=== PATIENT | female | born 1960 | race Caucasian/White ===

== ENCOUNTER 2025-04-10 11:26 | Outpatient (AMB) | payer MEDICARE, MEDICAID, SELFPAY ==
--- NOTE | 2025-04-10 11:43 | MHC.OFFVIS ---
Intake Visit Reasons: ENP- Embolic Stroke Allergies Seasonal Allergies Allergy (Unknown, Verified 04/09/25 08:39) Unknown HPI Comments Details: The patient is a 64-year-old female presenting with concerns regarding memory loss following a cerebrovascular accident which occurred in October 2022. The stroke presented with left-sided weakness and drooling, and she was hospitalized at [facility] where a Patent Foramen Ovale was discovered. Following this, a closure procedure was executed in January 2023. Her medical history includes long-standing hypertension, hypercholesterolemia, managed with medications, and more acutely, anxiety and depression. She admits to heavy alcohol use in the past. Notably, she had significant memory issues predating and post-stroke, fearful of developing Alzheimer's like her mother. Her speech and walking remain affected post-stroke, and she struggles with everyday memory recall, thus affecting her routine activities. She takes clopidogrel and amlodipine regularly and sometimes aspirin but has expressed confusion about her medication post-PFO closure. Her regimen includes a statin for cholesterol management as well. Her recent heart evaluation showed no additional problems. Concerns about safety at home due to forgetfulness remain significant. [facility] Medical History (Updated 04/10/25 @ 11:50 by Gifty Pickens MD) Herpes simplex Depression Acute eczema Anxiety Hypertension HLD (hyperlipidemia) Review of Systems Const Details: - Neurological: Reports memory loss, speech difficulties post-stroke, struggles with walking. - Cardiovascular: Reports a history of stroke; diagnosed PFO now closed. - Mental Health: Reports history of anxiety and depression. - Musculoskeletal: Reports left-sided weakness post-stroke. - ENT: Reports watery nasal discharge. - Medication: Reports taking clopidogrel, amlodipine, statins; inconsistent aspirin use. - Family History: Reports mother with Alzheimer's. Physical Exam Neuro Other: Mental Status: Alert and oriented to person, place, and time. Normal attention. Normal spontaneous speech, fluency, and comprehension. No obvious issues with mood and memory. Affect is appropriate. Cranial Nerves: CN II: Visual grant full to confrontation, visual acuity intact. CN III, IV, : Pupils equal, round, reactive to light and accommodation. Extraocular movements are normal. CN V: Facial sensation is normal. CN VII: Facial movements symmetrical. CN VIII: Hearing intact to bedside conversation is normal. CN IX, X: Palate elevates symmetrically. CN XI: Shoulder shrug and head turn symmetrical. CN XII: Tongue midline without atrophy or fasciculations. Motor: Bulk and tone normal in all extremities. No significant muscle weakness in arms and legs. No drift. Reflexes: Deep tendon reflexes 1+ and symmetric. Plantar response down-going bilaterally. Coordination: [id number] is ok Gait and Station: No obvious gait abnormality. No ataxia or instability. Sensory: Intact to light touch, pinprick, and vibration. Romberg is negative. Extrapyramidal: Full facial expressions and blinking. No rigidity. Movements are appropriate with no tremor or abnormality. Speech: Mild dysphasia Assessment & Plan Assessment & Plan (1) Cerebral infarction: Code(s): I63.9 - Cerebral infarction, unspecified Category: Medical Qualifiers: Cerebral infarction mechanism: embolism Precerebral and cerebral artery: middle cerebral artery Laterality of affected vessel: right Qualified Code(s): I63.411 - Cerebral infarction due to embolism of right middle cerebral artery Plan Impression: a: Reported h/o embolic cerebral infarction resulting in left hemiparesis, which is better, and difficulty speaking, some of which is still there. She apparently had PFO closure. b: Cognitive issues with probably multifactorial etiology Rec: a: Medical records from [facility] b: CD of MRI done at [facility] for review Coding Level of Care Code New Pt Level 5 (46514) Diagnoses Cerebral infarction due to embolism of right middle cerebral artery I63.411 Cerebral infarction mechanism: embolism Precerebral and cerebral artery: middle cerebral artery Laterality of affected vessel: right
--- OUTSIDE RECORDS SUMMARY | 2025-04-10 12:54 | XMS_ITS | Encounter Summary ---
Author Organization [facility] Address [address] [place] [phone] Care Team Providers Care [employer] Name Role Phone Veena Bae MD Primary Care Provider Encounter Details Date Type Department Care Team ([facility] Contact Info) Description 04/09/2025 Telephone Adult Medicine [facility] [address] [place] [phone] Cady Golden [place] Social History Tobacco Use Types Packs/Day Years Used Date Smoking Tobacco: Former Cigarettes 0.5 46 1 979 - 2024 Smokeless Tobacco: Never Alcohol Use Standard Drinks/Week Comments Not Currently 0 (1 standard drink = 0.6 oz pur e alcohol) Comments Unknown Sex and Gender Information Value Date Recorded Sex Assigned at Female 02/11/2025 10:59 AM EDT Legal Sex Female 7:50 AM EST Gender Identity Not on file Sexual Orientation Not on file documented as of this encounter Plan of Treatment Upcoming Encounters Date Type Department Care Team ([facility] Contact Info) Description 07/06/2025 3:30 PM EST Office Visit Adult [facility] [address] [place] [phone] Abel Lincoln PA [address] [place] [address] documented as of this encounter Visit Diagnoses Not on filedocumented in this encounter Additional Health Concerns Assessment Noted Time PHQ-9 Depression Total Score: 7 01/05/20 25 2:55 PM EDT documented as of this encounter Care Teams [employer] Relationship Specialty Start Date End Date Veena Bae MD [address] [place] [address] PCP - General Internal Medicine 11/26/21 documented as of this encounter
--- OUTSIDE RECORDS SUMMARY | 2025-04-10 12:54 | XMS_ITS | Clinical Summary ---
Author Organization [facility] [address] [facility] l[address] Address [address] [place] [address] Phone Care Team Providers Care Bank Manager Name Role Phone Veena Bae MD Primary Care Provider Allergies Active Allergy Reactions Criticality Noted Date Comments Other 11/19/2022 Seasonal Allergies Medications albuterol HFA (PROAIR HFA ; PROVENTIL HFA ; VENTOLIN HFA) 90 mcg/actuation inhaler Inhale 2 Puffs into the lungs every 6 hours as needed for Cough, Wheezing or Shortness of Breath. 3 Active amLODIPine (NORVASC) 5 mg tablet Take 1 tablet (5 mg total) by mouth 1 (one) time each day. 90 tablet 1 5 Active magnesium oxide (MAG-OX) 400 mg (241.3 elemental magnesium) tablet TAKE 1 TABLET BY MOUTH EVERY DAY 90 tablet 1 5 Active hydrOXYzine HCL (ATARAX) 10 mg tabletIndication s:Rash and other nonspecific skin eruption TAKE 1 TABLET BY MOUTH AT BEDTIME NEEDED FOR ITCHING. 90 tablet 1 5 Active GENERIC EXTERNAL MEDICATION 1 (one) time each day. Vitamin D unsure of dose Active acetaminophen (TYLENOL) 325 mg tablet Take 1 tablet (325 mg total) by mouth 2 (two) times a day if needed for mild pain. Active cyclobenzaprine (FLEXERIL) 5 mg tabletIndication s:History of fracture of left ankle Take 1 tablet (5 mg total) by mouth 2 (two) times a day if needed for muscle spasms (can make tired). 30 tablet 5 Active aspirin 81 mg EC tablet Take 1 tablet (81 mg total) by mouth 1 (one) time each day. Active atorvastatin (LIPITOR) 80 mg tabletIndication s:Medicare annual wellness visit, subsequent,Mixed hyperlipidemia,P rimary hypertension,Ecz wale, unspecified type,Moderate episode of recurrent major depressive disorder ([facility] V24, [facility]/HCC V28),Screening for lung cancer Take 1 tablet (80 mg total) by mouth 1 (one) time each day. 5 Active Active Problems Problem Noted Date Diagnosed Date History of embolic stroke 12/29/2024 Assessment & Plan (01/04/2025 4:29 PM EDT): With residual deficits. Continue with aspirin. Keep follow-up with neurology. Eczema 09/05/2024 Assessment & Plan (01/04/2025 4:29 PM EDT): Symptoms well-controlled. No longer seeing dermatology. Orders: atorvastatin (LIPITOR) 80 mg tablet; Take 1 tablet (80 mg total) by mouth 1 (one) time each day. Ambulatory referral to Thoracic Surgery; Future History of fracture of left ankle 09/05/2024 Depression 02/12/2022 Assessment & Plan (01/04/2025 4:29 PM EDT): Advised to continue taking Celexa 10 mg daily. Orders: atorvastatin (LIPITOR) 80 mg tablet; Take 1 tablet (80 mg total) by mouth 1 (one) time each day. Ambulatory referral to Thoracic Surgery; Future Heavy alcohol use 08/11/2018 Overview (04/21/2024): Seen at [facility] 07/26/18 complaining of crisis with alcohol overuse, alcohol [id number] seen by crisis and discharged Right shoulder pain 11/10/2017 Overview (04/21/2024): MRI 01/25/2012: There are fibrocystic degenerative changes along the posterior humeral head. The rotator cuff appears grossly intact. There is AC join arthrosis, with cystic change in the distal clavicle and adjacent acromion. Hyperglycemia 11/19/2015 Anxiety 2015 Herpes simplex 2015 HTN (hypertension) 2015 Assessment & Plan (01/04/2025 4:29 PM EDT): Blood pressure well-controlled on current regimen. Orders: atorvastatin (LIPITOR) 80 mg tablet; Take 1 tablet (80 mg total) by mouth 1 (one) time each day. Ambulatory referral to Thoracic Surgery; Future Hypercholesterolemia 2015 Overview (04/21/2024): Exercise stress 10/23/11 Encounters Date Type Department Care Team Description 04/09/2025 Telephone Adult Medicine - [place] [address] [place] [address] Cady Golden MA 04/02/2025 Telephone Adult Medicine - [place] [address] [place] [address] Veena Bae MD 03/30/2025 Telephone Adult Medicine - [place] [address] [place] [address] Veena Bae MD 03/30/2025 Telephone Adult Medicine - [place] [address] [place] [address] Veena Bae MD 03/30/2025 Telephone Adult Medicine - [place] [address] [place] [address] Veena Bae MD 03/27/2025 Telephone Adult Medicine - [place] [address] [place] [address] Veena Bae MD 03/27/2025 Telephone Adult Medicine - [place] [address] [place] [address] Veena Bae MD 03/15/2025 Telephone Adult Medicine - [place] [address] [place] [address] Veena Bae MD 03/09/2025 Telephone Adult [facility] [address] [place] [address] Veena Bae MD 03/05/2025 Telephone Adult [facility] [address] [place] [address] Veena Bae MD 03/01/2025 10:30 AM EDT Office Visit Adult [address] [address] Veena Bae MD Hospital discharge follow-up (Primary Dx); S/P patent foramen ovale closure; History of embolic stroke; Primary hypertension; Mixed hyperlipidemia; Speech disturbance, unspecified type 02/23/2025 Telephone Adult [address] [address] Veena Bae MD 02/13/2025 10:13 AM EDT - 02/13/2025 11:59 PM EDT Hospital Encounter [facility] CT Scan [address] [place] [address] Encounter for screening for lung cancer; History of tobacco use Discharge Disposition: Home or Self Care 02/13/2025 10:00 AM EDT Office Visit Lung Screening Program - [place] [address] [facility] [address] [place] [phone] Marii Bhatia, KATIE Encounter for screening for malignant neoplasm of lung in former smoker who quit in past 15 years with 30 pack year history or greater (Primary Dx); Medicare annual wellness visit, subsequent; Mixed hyperlipidemia; Primary hypertension; Eczema, unspecified type; Moderate episode of recurrent major depressive disorder (CMS/HCC V24, CMS/HCC V28); Screening for lung cancer 02/08/2025 Telephone Adult [facility] [address] [place] [address] Veena Bae MD 02/05/2025 Telephone Adult [facility] [address] [place] [address] Ricardo NadiaNBA 01/18/2025 Telephone Adult [facility] [address] [place] [address] Veena Bae MD 01/11/2025 Telephone Adult [facility] [address] [place] [phone] Veena Bae MD 01/09/2025 Telephone Adult [facility] [address] [place] [phone] Veena Bae MD from Last 3 Months Immunizations Immunization Administration Dates Next Due Hepatitis B (Fijcxjs-D-Btjvw , Recombivax HB-Adult) 19yo and older 04/26/2012,11/24/2011,10/14/2011 Influenza Quadravalent, MDCK , 0.5ml, preservative free (Flucelvax) 6mo and older 06/20/2019 Tdap Tetanus diptheria acell ular pertussis (Boostrix; Adacel) 7yo and older 11/19/2015 Surgical History Surgery Date Site/Laterality Comments COLONOSCOPY 12/16/11 PROCEDURE: HISTORICAL COLONOSCOPY; COMMENT: nl, Aleisha per pt OTHER SURGICAL HISTORY 11/14/09 PROCEDURE: OUTSIDE PAP SMEAR TUBAL LIGATION 1989 PROCEDURE: HISTORICAL TUBAL LIGATION ECTOPIC SURGERY 1989 Left PROCEDURE: HISTORICAL ECTOPIC SURGERY; COMMENT: tubal BREAST LUMPECTOMY PROCEDURE: ---- BREAST LUMP BIOPSY ---- BREAST BIOPSY Bilateral PROCEDURE: BX BREAST; PERC NEEDLE CORE W/IMAG GUID; COMMENT: 6 or 7 yrs ago FOOT SURGERY PROCEDURE: HISTORICAL FOOT SURGERY; COMMENT: bunion exostectomy PATENT FORAMEN OVALE CLOSURE 01/31/2025 Medical History Medical History Date Comments HTN (hypertension) 2015 DX:HTN (hyper tension) Herpes simplex 2015 DX:Herpes simple x Hypercholesterolemia 2015 DX:Hypercho lesterolemia Anxiety 2015 DX:Anxiety Hx of stroke without residual deficits 5 Family History Medical History Relation Name Comments Diabetes Brother 1 Hypertension Brother 2 Heart attack Father dyslipidemia Arthritis Mother Colon cancer Other cousin Leukemia Paternal Grandfather Breast cancer Neg Hx Relation Name Status Comments Brother 1 Brother 2 Father Mother (Age 85) Other Paternal Grandfather Social History Tobacco Use Types Packs/Day Years Used Date Smoking Tobacco: Former Cigarettes 0.5 46 1 2024 Smokeless Tobacco: Never Alcohol Use Standard Drinks/Week Comments Not Currently 0 (1 standard drink = 0.6 oz pur e alcohol) Comments Unknown Sex and Gender Information Value Date Recorded Sex Assigned at Female 02/11/2025 10:59 AM EDT Legal Sex Female 7:50 AM EST Gender Identity Not on file Sexual Orientation Not on file Obstetrics History Last Filed Vital Signs Vital Sign Reading Time Taken Comments Blood Pressure 114/72 03/01/2025 10:25 AM EDT Pulse 85 03/01/2025 10:25 AM EDT Temperature 36 C (96.8 F) 03/01/2025 10:25 AM EDT Respiratory Rate 16 03/01/2025 10:25 AM EDT Oxygen Saturation 95% 11/24/2024 11:28 AM EDT Inhaled Oxygen Concentration - - Weight 73.9 kg (163 lb) 03/01/2025 10:25 AM EDT Height 163 cm (5' 4.17 ) 03/01/2025 10:25 AM EDT Body Mass Index 27.83 03/01/2025 10:25 AM EDT Plan of Treatment Upcoming Encounters Date Type Department Care Team (Late st Contact Info) Description 07/06/2025 3:30 PM EST Office Visit Adult Medicine - [address] [address] Abel Lincoln, PA [address] [place] [phone] Health Maintenance Due Date Last Done Comments Colorectal Cancer Screening: Colonoscopy 1960 Hepatitis A Vaccines (1 of 2 - Risk 2-dose series) 09/22/1978 Pneumococcal Vaccine: 50+ Years (1 of 1 - PCV) 09/22/2009 Zoster Vaccines (1 of 2) 09/22/2009 Cervical Cancer Screening: P ap Smear 11/07/2012 11/07/2009 Osteoporosis Screening (Bone Density Screening) 06/20/2022 Social Influencers of Health Screening 06/20/2022 COVID-19 Vaccine (2023-2 5 season) 2025 Influenza Vaccine (#1) 2025 06/20/2019 Hypertension/CHF/CAD Annual BMP Blood Test 09/05/2025 09/05/2024, 09/01/2023 Breast Cancer Screening 09/08/2025 09/08/19 24, 01/04/2019 DTaP,Tdap,and Td Vaccines (2 - Td or Tdap) 11/18/2025 11/19/2015 Falls Risk Assessment 01/04/2026 01/04/2025 Medicare Annual Wellness Visit 01/04/2026 01/04/2025 Lung Cancer Screening (Low Dose CT) 02/13/2026 02/13/2025 Cholesterol Screening (Lipid Panel) 09/05/2029 09/05/2024, 11/30/2023, 11/30/2023 RSV Immunization Adult Patients (1 - 1-dose 75+ series) 09/22/2034 Hepatitis B Vaccines Completed 04/26/2012, 11/24/2011, 10/14/2011 Hepatitis C Screening Completed 09/19/2019 Depression Screening Completed 01/04/2025, 11/30/2023 HIB Vaccines Aged Out No longer eligi ble based on patient's age to complete this topic HPV Vaccines Aged Out No longer eligi ble based on patient's age to complete this topic IPV Vaccines Aged Out No longer eligi ble based on patient's age to complete this topic MMR Vaccines Aged Out No longer eligi ble based on patient's age to complete this topic Meningococcal ACWY Vaccine Aged Out N o longer eligible based on patient's age to complete this topic Meningococcal B Vaccine Aged Out No l onger eligible based on patient's age to complete this topic RSV Immunization Patients Under 20 months Aged Out No longer eligible b ased on patient's age to complete this topic Varicella Vaccines Aged Out No longer eligible based on patient's age to complete this topic Procedures Procedure Name Priority Date/Time Associated Diagnosis Comments EXTERNAL ECHO Routine 03/01/2025 3:[address] LUNG SCREENING Routine 02/13/2025 10: 24 AM EDT Encounter for screening for lung cancer History of tobacco use COMPREHENSIVE METABOLIC PANEL Routine 09/05/2024 3:41 PM EST Primary hypertension Hypercholesterolem ia LIPID PANEL WITH REFLEX TO DIRECT LDL Routine 09/05/2024 3:41 PM EST Primary hypertension Hypercholesterolem ia DEPRESSION SCREENING Routine 11/30/2023 SCREENING MAMMOGRAPHY BI 2-VIEW BREAST INC CAD Routine 09/08/2023 1:49 PM EST Encounter for screening mammogram for malignant neoplasm of breast HEPATITIS C SCREENING Routine 09/19/2019 PAP SMEAR Routine 11/07/2009 from Last 3 Months or Most Recently Relevant to Health Maintenance Results * External Echo (03/01/2025 3:34 PM EDT) Anatomical Region Laterality Modality Ultrasound us Historical Provider MD DSOUZA ECHO PROCEDURES Final Result * CT Lung Screening (02/13/2025 10:24 AM EDT) Anatomical Region Laterality Modality Chest Computed Tomogra phy 02/18/2025 5:58 AM EDT Impressions 02/18/2025 6:13 AM EDT No suspicious pulmonary nodules Lung RADS 2: Benign Appearance or Behavior - Continue annual screening with LDCT in 12 months. -------- FINAL REPORT -------- Dictated By: Azra Rankin Dictated Date: 02/18/2025 05:58 ET Assigned Physician: Azra Rankin Reviewed and Electronically Signed By: Azra Rankin Signed Date: 02/18/2025 06:13 ET Workstation ID: [id number] Transcribed By: Self Edit Transcribed Date: 02/18/2025 05:58 ET Narrative 02/18/2025 6:13 AM EDT Indication: Greater than 20 total pack-year smoking history, asymptomatic former smoker Technique: Low-dose CT scan of the chest obtained as a lung cancer screening study. Multiplanar reformatted images were obtained. Dose reduction technique: ASIR (Adaptive statistical iterative reconstruction) and/or AEC (automated exposure control) DLP: 90.54 mGy-cm COMPARISON: No prior imaging available for comparison. FINDINGS: Lack of intravenous contrast limits evaluation of the [place], vascular structures and visualized abdominal viscera. Lungs/airways: Trachea and central airways are patent. Mild emphysematous changes. 5 mm juxtapleural nodule in the right upper lobe (series 3, image 56). Other scattered sub-5 mm pulmonary nodules. Base of the neck, mediastinum, heart, chest wall, vessels: The assessment of hilar lymphadenopathy is difficult without the use of IV contrast. Thyroid gland is unremarkable. No enlarged mediastinal lymph nodes. Thoracic aortic and coronary artery calcifications. Ascending thoracic aorta measures approximately 3.8 cm at the level of the pulmonary trunk. Postsurgical appearance along the foramen ovale and mitral annulus Upper abdomen: This study was performed without contrast and with lower than standard dose. These factors reduce the sensitivity for detection of small lesions in the upper abdomen. No significant abnormality is seen Bones/soft tissues: Right convex thoracic scoliosis. Procedure Note Azra Rankin MD - 02/18/2025 Indication: Greater than 20 total pack-year smoking history, asymptomaticformer smoker Technique: Low-dose CT scan of the chest obtained as a lung cancerscreening study. Multiplanar reformatted images were obtained. Dosereduction technique: ASIR (Adaptive statistical iterative reconstruction)and/or AEC (automated exposure control) DLP: 90.54 mGy-cm COMPARISON: No prior imaging available for comparison. FINDINGS: Lack of intravenous contrast limits evaluation of the [place],vascular structures and visualized abdominal viscera. Lungs/airways: Trachea and central airways are patent. Mild emphysematouschanges. 5 mm juxtapleural nodule in the right upper lobe (series 3, image 56).Other scattered sub-5 mm pulmonary nodules. Base of the neck, mediastinum, heart, chest wall, vessels: The assessmentof hilar lymphadenopathy is difficult without the use of IV contrast.Thyroid gland is unremarkable. No enlarged mediastinal lymph nodes.Thoracic aortic and coronary artery calcifications. Ascending thoracicaorta measures approximately 3.8 cm at the level of the pulmonary trunk.Postsurgical appearance along the foramen ovale and mitral annulus Upper abdomen: This study was performed without contrast and with lowerthan standard dose. These factors reduce the sensitivity for detection ofsmall lesions in the upper abdomen. No significant abnormality is seen Bones/soft tissues: Right convex thoracic scoliosis. IMPRESSION: No suspicious pulmonary nodules Lung RADS 2: Benign Appearance or Behavior - Continue annual screeningwith LDCT in 12 months. -------- FINAL REPORT -------- Dictated By: Azra Rankin Dictated Date: 02/18/2025 05:58 ET Assigned Physician: Azra Rankin Reviewed and Electronically Signed By: Azra Rankin Signed Date: 02/18/2025 06:13 ET Workstation ID: [id number] Transcribed By: Self Edit Transcribed Date: 02/18/2025 05:58 ET us Ollie Hoffman MD IMG CT PROCEDURES Final Result * Lipid panel with reflex to direct LDL (09/05/2024 3:41 PM EST) Cholesterol 198 0 - 200 mg/dL LAB CHEMISTRY METHOD 09/05/2024 6:09 PM [facility] Triglycerides 91 0 - 150 mg/dL LAB CHEMISTRY METHOD 09/05/2024 6:09 PM [facility] HDL 89 >=40 mg/dL LAB CHEMISTRY METHOD 09/05/2024 6:09 PM [facility] LDL Calculated 91 0 - 100 mg/dL LAB CHEMISTRY METHOD 09/05/2024 6:09 PM [facility] VLDL Cholesterol Avery 18.2 mg/dL LAB CHEMISTRY METHOD 09/05/2024 6:09 PM [facility] Non HDL Chol. (LDL+VLDL) 109 <145 mg/dL LAB CHEMISTRY METHOD 09/05/2024 6:09 PM [facility] Chol/HDL Ratio 2.2 0.0 - 4.4 LAB CHEMISTRY METHOD 09/05/2024 6:09 PM [facility] Blood Venous blood specimen / Unknown Venipuncture / Unknown 09/05/2024 3:41 PM EST 09/05/2024 3:41 PM EST us Abel MUELLER LAB BLOOD ORDERABLES Final Re sult [facility] [address] [place] [address], * (ABNORMAL) Comprehensive metabolic panel (09/05/2024 3:41 PM EST) Sodium 139 133 - 145 mmol/L LAB CHEMISTRY METHOD 09/05/2024 6:07 PM [facility] Potassium 4.1 3.5 - 5.5 mmol/L LAB CHEMISTRY METHOD 09/05/2024 6:07 PM [facility] Chloride 108 96 - 110 mmol/L LAB CHEMISTRY METHOD 09/05/2024 6:07 PM [facility] CO2 26 21 - 32 mmol/L LAB CHEMISTRY METHOD 09/05/2024 6:07 PM [facility] Anion Gap 5 3 - 11 LAB CHEMISTRY METHOD 09/05/2024 6:07 PM [facility] Glucose 102(H) 70 - 100 mg/dL LAB CHEMISTRY METHOD 09/05/2024 6:07 PM [facility] BUN 25 5 - 25 mg/dL LAB CHEMISTRY METHOD 09/05/2024 6:07 PM [facility] Creatinine 0.77 0.50 - 1.10 mg/dL LAB CHEMISTRY METHOD 09/05/2024 6:07 PM [facility] eGFR 86 >=60 mL/min/1. 73m2 LAB CHEMISTRY METHOD 09/05/2024 6:07 PM [facility] Comment:Calculation based on the Chronic Kidney Disease Epidemiology Collaboration (CKD-EPI) equation refit without adjustment for race. BUN/Creatinine Ratio 32.5 LAB CHEMISTRY METHOD 09/05/2024 6:07 PM [facility] Calcium 10.1 8.5 - 10.5 mg/dL LAB CHEMISTRY METHOD 09/05/2024 6:07 PM [facility] AST (SGOT) 19 10 - 42 unit/L LAB CHEMISTRY METHOD 09/05/2024 6:07 PM [facility] ALT (SGPT) 31 10 - 60 unit/L LAB CHEMISTRY METHOD 09/05/2024 6:07 PM [facility] Alkaline Phosphatase 102 42 - 121 unit/L LAB CHEMISTRY METHOD 09/05/2024 6:07 PM [facility] Total Protein 7.6 6.0 - 8.0 g/dL LAB CHEMISTRY METHOD 09/05/2024 6:07 PM [facility] Albumin 4.2 3.2 - 5.0 g/dL LAB CHEMISTRY METHOD 09/05/2024 6:07 PM [facility] Total Bilirubin 0.3 0.0 - 1.4 mg/dL LAB CHEMISTRY METHOD 09/05/2024 6:07 PM [facility] Blood Venous blood specimen / Unknown Venipuncture / Unknown 09/05/2024 3:41 PM EST 09/05/2024 3:41 PM EST Abel MUELLER LAB BLOOD ORDERABLES Final Re sult [facility] [address] [place] [address], * Depression Screening (11/30/2023) Depression Screening Abstracted Historical Provider HEALTH MAINTENANCE Final Result * SCREENING MAMMOGRAPHY BI 2-VIEW BREAST INC CAD (09/08/2023 1:49 PM EST) Anatomical Region Laterality Modality Radiographic Candie ging 09/03/2023 9:27 AM EST Narrative 09/09/2023 9:04 AM EST This is a summary report. The complete report is available in the patient's medical record. If you cannot access the medical record, please contact the sending organization for a detailed fax or copy. Exam: Screening mammogram Findings: Digital bilateral full-field screening mammography is performed with tomosynthesis and interpreted with the aid of computer-aided detection. Comparison is made with 01/04/2019. Breast parenchyma is composed of scattered fibroglandular densities. Minimal enlargement of the sonographically proven cyst in the lower inner left breast. No new suspicious mass, architectural distortion, or suspicious calcifications. Impression: No mammographic evidence of malignancy. BI-RADS 2-benign Procedure Note Yana Holcomb MD - 02/28/2024 This is a summary report. The complete report is available in thepatient's medical record. If you cannot access the medical record, pleasecontact the sending organization for a detailed fax or copy. Exam: Screening mammogram Findings: Digital bilateral full-field screening mammography is performedwith tomosynthesis and interpreted with the aid of computer-aideddetection. Comparison is made with 01/04/2019. Breast parenchyma is composed of scattered fibroglandular densities.Minimal enlargement of the sonographically proven cyst in the lower innerleft breast. No new suspicious mass, architectural distortion, orsuspicious calcifications. Impression: No mammographic evidence of malignancy. BI-RADS 2-benign Abel MUELLER IMG XR PROCEDURES Final Resul t * Hepatitis C Screening (09/19/2019) Hepatitis C Screening Abstracted Historical Provider HEALTH MAINTENANCE Final Result * Pap Smear (11/07/2009) Pap smear No Interpretation , Abstracted Historical Provider HEALTH MAINTENANCE Final Result from Last 3 Months or Most Recently Relevant to Health Maintenance Insurance [place]ICA[place] [employer] MEDICARE ADVANTAGE Care Teams Bank Manager Relationship Specialty Start Date End Date Veena Bae MD [address] [place] [phone] PCP - General Internal Medicine 11/26/21
--- OUTSIDE RECORDS SUMMARY | 2025-04-10 12:54 | XMS_ITS | Encounter Summary ---
Author Organization [facility] Address [address] [place] [address] Care Team Providers Care Food Safety Technician Name Role Phone Veena Bae MD Primary Care Provider Reason for Visit * Reason Onset Date Comments Letter for School/Work 04/02/2025 Encounter Details Date Type Department Care Team ([facility] Contact Info) Description 04/02/2025 Telephone Adult Medicine - [place] [address] [place] [phone] Veena Bae MD [address] [place] [address] Social History Tobacco Use Types Packs/Day Years Used Date Smoking Tobacco: Former Cigarettes 0.5 46 1 97 - 2024 Smokeless Tobacco: Never Alcohol Use Standard Drinks/Week Comments Not Currently 0 (1 standard drink = 0.6 oz pur e alcohol) Comments Unknown Sex and Gender Information Value Date Recorded Sex Assigned at Female 02/11/2025 10:59 AM EDT Legal Sex Female 7:50 AM EST Gender Identity Not on file Sexual Orientation Not on file documented as of this encounter Progress Notes * Cady Golden MA - 04/09/2025 9:40 AM EDT Mychart sent to [facility] account number needed. * David Sultana - 04/02/2025 1:10 PM EDT Pt calling in because she needs a letter for work stating that she is recovering from a serious illness. Pt had a stroke recently. Pt needs this for Eversouce so she can get a lowered gas bill and then to have it mailed to the address on file. Pls marisa leon. documented in this encounter Plan of Treatment Upcoming Encounters Date Type Department Care Team (Late st Contact Info) Description 07/06/2025 3:30 PM EST Office Visit Adult Medicine - [place] [address] [place] [address] Abel Lincoln PA [address] [place] [address] documented as of this encounter Visit Diagnoses Not on filedocumented in this encounter Additional Health Concerns Assessment Noted Time PHQ-9 Depression Total Score: 7 01/05/20 25 2:55 PM EDT documented as of this encounter Care Teams Food Safety Technician Relationship Specialty Start Date End Date Veena Bae MD [address] [phone] PCP - General Internal Medicine 11/26/21 documented as of this encounter
--- OUTSIDE RECORDS SUMMARY | 2025-04-10 12:54 | XMS_ITS ---
Author Name [facility] Organization Unknown Care Team Organization Name Specialty Phone Email Start Date End Da te [facility] Parish Ivey DO Primary Care 09/16/202202/09 [facility] Rupali Maddox Primary Care 05/19/2022 02/28/2024
--- OUTSIDE RECORDS SUMMARY | 2025-04-10 12:54 | XMS_ITS | Clinical Summary ---
Author Organization [facility] Address [address] [place] [address] Care Team Providers Care Distribution Accounting Clerk Name Role Phone Veena Bae MD Primary Care Provider Medications Medication Sig Dispensed Refills Start Date End Date Status amLODIPine (NORVASC) tablet 5 mg Take 1 tablet by mouth daily. 0 02/03/2022 Active escitalopram (LEXAPRO) tablet 10 mg Take 1.5 tablets by mouth daily. 0 02/12/2022 Active fluticasone (Flovent HFA) 110 MCG/ACT inhaler Take 1 puff by mouth 2 (two) times a day. 0 01/27/2022 Active folic acid (FOLVITE) tablet 1 mg Take 1 tablet by mouth daily. 0 04/23/2020 Active Multiple Vitamins-Minerals (Multivitamin Adults 50+) TABS Take by mouth. 0 Active Vitamins A & D 38704-180 units TABS Take by mouth. 0 Active Active Problems No known active problems Social History Tobacco Use Types Packs/Day Years Used Date Smoking Tobacco: Never Smokeless Tobacco: Never Alcohol Use Standard Drinks/Week Comments Not Currently 0 (1 standard drink = 0.6 oz pur e alcohol) Sex and Gender Information Value Date Recorded Sex Assigned at Not on file Gender Identity Not on file Sexual Orientation Not on file Job Start Date Occupation Industry Not on file Not on file Not on file Last Filed Vital Signs Vital Sign Reading Time Taken Comments Blood Pressure 145/82 03/20/2022 10:38 AM EDT Pulse 93 03/20/2022 10:38 AM EDT Temperature 36.6 C (97.8 F) 03/20/2022 10:38 AM EDT Respiratory Rate - - Oxygen Saturation 98% 03/20/2022 10:38 AM EDT Inhaled Oxygen Concentration - - Weight 66.7 kg (147 lb) 03/20/2022 10:38 AM EDT Height - - Body Mass Index - - Plan of Treatment Health Maintenance Due Date Last Done Comments Hepatitis C Screening 1960 COVID-19 Vaccine (#1) 03/25/1960 Depression Screening 1971 Preventative Health Evaluation 09/22/1977 Cervical Cancer Screening (P ap Smear) 09/22/1980 Colon Cancer Screening (Colonoscopy) 09/22/2004 Breast Cancer Screening (Mammogram) 09/22/2009 Shingrix-Zoster Vaccine (1 of 2) 09/22/2009 Fall Risk Assessment 09/22/2024 Osteoporosis Screening (DEXA Scan) 09/22/2024 Pneumococcal Vaccine (1 of 1 - PCV) 09/22/2024 Influenza Vaccine (#1) 2025 06/20/2019 DTap / Tdap / Td (2 - Td or Tdap) 11/18/2025 016 RSV Adult > 60+ Yrs or Pregn ant (1 - 1-dose 75+ series) 09/22/2034 Hepatitis B Vaccines Aged Out No long er eligible based on patient's age to complete this topic Pneumococcal Vaccine Aged Out No long er eligible based on patient's age to complete this topic RSV Ped < 20 months Aged Out No longe r eligible based on patient's age to complete this topic Care Teams Distribution Accounting Clerk Relationship Specialty Start Date End Date Veena Bae MD [address] [place] [address] PCP - General Family Medicine 01/14/22
== END 2025-04-10 11:57 | disposition home or self-care (01) ==
PROVIDERS: Visit Provider Psychiatry & Neurology Neurology
DX: I63.411 Cerebral infarction due to embolism of right middle cerebral artery (principal)
CPT/HCPCS: 99203

== ENCOUNTER → 2025-04-10 11:26 | Outpatient (BNVA) | payer MEDICARE, SELFPAY | PROVIDERS: Visit Provider Psychiatry & Neurology Neurology | DX: I63.411 Cerebral infarction due to embolism of right middle cerebral artery (principal) | CPT/HCPCS: 99202 ==

== ENCOUNTER 2025-05-07 10:34 | Outpatient (AMB) | payer MEDICARE, MEDICAID, SELFPAY ==
--- NOTE | 2025-05-07 10:36 | A.OFFVIS_ITS ---
Intake Visit Reasons: PT Bringing Records for review Allergies Seasonal Allergies Allergy (Unknown, Verified 04/09/25 08:39) Unknown Medication List - Last Reconciled 05/07/25 by Gifty Pickens MD amlodipine 5 mg PO DAILY aspirin 81 mg PO DAILY atorvastatin 80 mg PO BEDTIME citalopram 10 mg PO DAILY clopidogrel 75 mg PO DAILY fluticasone propionate 110 mcg/actuation 1 puff inhalation BID hydroxyzine HCl 10 mg PO BEDTIME PRN HPI Comments Details: 64 years old right-handed woman with a small right anterior frontal embolic ischemic infarct resulting in left-sided weakness in late October of 2024 when she was admitted at [facility]. She was noted to have a right M3 embolus and moderate (55%) stenosis of right ICA. Her cardiac testing revealed a PFO and she had a closure procedure done. After that, she was put on aspirin and Plavix and Plavix was recently stopped. She was following a cement mason helper. There was no further stroke-like symptoms. She was having some difficulty sleeping. [facility] Medical History (Updated 05/07/25 @ 10:48 by Gifty Pickens MD) Herpes simplex Depression Acute eczema Anxiety Hypertension HLD (hyperlipidemia) Review of Systems Narrative Constitutional:?No fever, chills, fatigue, weight loss, or night sweats. HEENT:?No headache, vision changes, hearing loss, nasal congestion, sore throat. Neurological:?No dizziness, syncope, seizures, numbness, tingling, weakness, tremors, memory loss. Psychiatric:?Anxiety and insomnia Endocrine:?No heat/cold intolerance, polydipsia, polyuria, or hair/skin changes. Hematologic/Lymphatic:?No easy bruising, bleeding, or lymphadenopathy. Integumentary (Skin):?No rash, lesions, itching, or color changes. ? Physical Exam Neuro Other: Mental Status: Alert and oriented to person, place, and time. Normal attention. Normal spontaneous speech, fluency, and comprehension. No obvious issues with mood and memory. Affect is appropriate. Cranial Nerves: CN II: Visual grant full to confrontation, visual acuity intact. CN III, IV, : Pupils equal, round, reactive to light and accommodation. Extraocular movements are normal. CN V: Facial sensation is normal. CN VII: Facial movements symmetrical. CN VIII: Hearing intact to bedside conversation is normal. CN IX, X: Palate elevates symmetrically. CN XI: Shoulder shrug and head turn symmetrical. CN XII: Tongue midline without atrophy or fasciculations. Extrapyramidal: Full facial expressions and blinking. No rigidity. Movements are appropriate with no tremor or abnormality. Speech: Normal; no dysarthria or tremor. Assessment & Plan Assessment & Plan (1) Cerebral infarction: Comment: CTA brain at [facility] in Oct 2024: 55% R ICA stenosis, R M3 embolus, R ant frontal embolic infarct (reported) Code(s): I63.9 - Cerebral infarction, unspecified Category: Medical Qualifiers: Cerebral infarction mechanism: embolism Precerebral and cerebral artery: middle cerebral artery Laterality of affected vessel: right Qualified Code(s): I63.411 - Cerebral infarction due to embolism of right middle cerebral artery (2) Embolic cerebral infarction: Code(s): I63.40 - Cerebral infarction due to embolism of unspecified cerebral artery Category: Medical Qualifiers: Precerebral and cerebral artery: middle cerebral artery Laterality of affected vessel: right Qualified Code(s): I63.411 - Cerebral infarction due to embolism of right middle cerebral artery (3) Insomnia: Code(s): G47.00 - Insomnia, unspecified Category: Medical Qualifiers: Insomnia type: due to other mental disorder Qualified Code(s): F51.05 - Insomnia due to other mental disorder; F99 - Mental disorder, not otherwise specified (4) Anxiety: Code(s): F41.9 - Anxiety disorder, unspecified Category: Medical Plan Impression recommendations: 64 years old right-handed woman with a small embolic right frontal ischemic infarct associated with moderate right internal carotid artery stenosis and a PFO, which was treated with a closure procedure, now stable. She also suffered from chronic anxiety and associated insomnia. She was reassured and educated. Her anxiety and insomnia has worsened since she stopped taking citalopram. I restarted similar medicine, sertraline 25 mg in the morning. She was reassured and educated. Medications: New sertraline 25 mg PO DAILY 90 tabs 0RF Coding Level of Care Code Est Pt Level 4 (72339) Diagnoses Cerebral infarction due to embolism of right middle cerebral artery I63.411 Cerebral infarction mechanism: embolism Precerebral and cerebral artery: middle cerebral artery Laterality of affected vessel: right Cerebral infarction due to embolism of right middle cerebral artery I63.411 Precerebral and cerebral artery: middle cerebral artery Laterality of affected vessel: right Insomnia due to other mental disorder F51.05; F99 Insomnia type: due to other mental disorder Anxiety F41.9
--- OUTSIDE RECORDS SUMMARY | 2025-05-07 12:58 | XMS_ITS | Clinical Summary ---
Author Organization [facility] Address [address] [place] [address] Care Team Providers Care Export Coordinator Name Role Phone Veena Bae MD Primary [...] mouth. 0 Active Vitamins A & D 71271-418 units TABS Take by mouth. 0 Active [...] age to complete this topic Care Teams Export Coordinator Relationship Specialty Start Date End Date Veena Bae MD [address] [place] [address] PCP - General Family Medicine 01/14/22
--- OUTSIDE RECORDS SUMMARY | 2025-05-07 12:59 | XMS_ITS | Encounter Summary ---
Author Organization [facility] Address [address] [place] [address] Care Team Providers Care Gravel Hauler Name Role Phone Veena Bae MD Primary Care Provider Reason for Visit * Reason Onset Date Comments Mouth Lesions 04/27/2025 Encounter Details Date Type Department Care Team ([facility] st Contact Info) Description 04/27/2025 Telephone Adult Medicine [facility] [address] [place] [phone] Veena Bae MD [address] [place] [address] Social History Tobacco Use Types Packs/Day Years [...] on file documented as of this encounter Ordered Prescriptions Prescription Sig Dispense Quantity Refills Last Filled Start Date End Date acyclovir (ZOVIRAX) 5 % ointmentIndicatio ns:Cold sore Apply topically 5 (five) times a day for 4 days. Space applications every 3 hours. 5 g 04/27/2025 documented in this encounter Progress Notes * Keny Smith RN - 04/27/2025 4:53 PM EDT Left message for pt to please return our call * Veena Bae MD - 04/27/2025 4:51 PM EDT Script for topical acyclovir sent. * Keny Smith RN - 04/27/2025 10:40 AM EDT Pt has been using OTC medication for a cold sore , but it is not helping pt is asking for a script to be sent * Bettye Estes - 04/27/2025 10:10 AM EDT Patient has cold sore and using Abreva. Since yesterday and today. Not drying it out like before. Wants to know if we can call something in for this. The cold sore is still tingling and doesn't seem to be getting better, with the abreva it seems to be getting worse. Please call patient back and let her know if we can call something in. [phone] documented in this encounter Plan of Treatment Upcoming Encounters Date Type Department Care Team (Late st Contact Info) Description 07/06/2025 3:30 PM EST Office Visit Adult Medicine - [place] [address] [place] [phone] Abel Lincoln PA [address] [place] [address] documented as of this encounter Visit Diagnoses Diagnosis Cold sore- Primary Herpes simplex without mention of complication documented in this encounter Additional Health Concerns Assessment Noted Time PHQ-9 Depression Total Score: 7 01/05/20 25 2:55 PM EDT documented as of this encounter Care Teams Gravel Hauler Relationship Specialty Start Date End Date Veena Bae MD [address] [place] [address] PCP - General Internal Medicine 11/26/21 documented as of this encounter
--- OUTSIDE RECORDS SUMMARY | 2025-05-07 12:59 | XMS_ITS | Encounter Summary ---
Author Organization [facility] Address [address] [place] [address] Care Team Providers Care Sock Turner Name Role Phone Veena Bae MD Primary Care Provider [phone] Encounter Details Date Type Department Care Team Description 01/15/2023 Hospital Medical Records [address] [place] [address] Jas Villarreal Social History Tobacco Use Types Packs/Day Years Used Date Smoking Tobacco: Former Cigarettes 1 10 Q uit: 07/12/2020 Smokeless Tobacco: Never Comments:Vape rarely Alcohol Use Standard Drinks/Week Comments Not Currently 0 (1 standard drink = 0.6 oz pur e alcohol) Sober 8 months (11/2023) Sex Assigned at Date Recorded Not on file Job Start Date Occupation Industry Not on file Not on file Not on file documented as of this encounter Plan of Treatment Not on file documented as of this encounter Visit Diagnoses Not on filedocumented in this encounter Care Teams Sock Turner Relationship Specialty Start Date End Date Veena Bae MD [address] [facility] [place] [address] PCP - General Internal Medicine 11/26/21 documented as of this encounter
--- OUTSIDE RECORDS SUMMARY | 2025-05-07 12:59 | XMS_ITS | Encounter Summary ---
Author Organization [facility] Address [address] [place] [address] Care Team Providers Care Shredding Machine Operator Name Role Phone Jacquie Garcia MD Primary Care Provider Veena Coronado MD Primary Care Provider Encounter Details Date Type Department Care Team Description 11/27/2015 Release of Information Medical Records [address] [place] [id number] Abstract, Provider Social History Tobacco Use Types Packs/Day Years Used Date Smoking Tobacco: Some Days Cigarettes 1 10 Smokeless Tobacco: Never Comments:perhaps 2 cigarette s aday if that Alcohol Use Standard Drinks/Week Comments Yes 0 (1 standard drink = 0.6 oz pur e alcohol) rare wine Sex Assigned at Date Recorded Not on file Job Start Date Occupation Industry Not on file Not on file Not on file documented as of this encounter Plan of Treatment Not on file documented as of this encounter Visit Diagnoses Not on filedocumented in this encounter Care Teams Shredding Machine Operator Relationship Specialty Start Date End Date Jacquie Garcia MD PCP - General Internal Medicine 09/04/15 11/25/21 Veena Bae MD [address] [place] [address] PCP - General Internal Medicine 11/26/21 documented as of this encounter
--- OUTSIDE RECORDS SUMMARY | 2025-05-07 12:59 | XMS_ITS | Encounter Summary ---
Author Organization [facility] Address [address] [place] [address] Care Team Providers Care Auto Parts Professional Name Role Phone Jacquie Garcia MD Primary Care Provider Veena Coronado MD Primary Care Provider [phone] Reason for Visit * Reason Onset Date Comments other 12/13/2018 [facility] Encounter Details Date Type Department Care Team Description 12/13/2018 Telephone Adult Medicine - [address] [address] Jacquie Garcia MD other ([facility]) Social History Tobacco Use Types Packs/Day Years [...] on file documented as of this encounter Miscellaneous Notes * Telephone Encounter - Salud Reyes M.A. - 12/13/2018 4:31 PM EDT Left message for pt to contact our office. Pt needs a [facility] appointment scheduled. documented in this encounter Plan of Treatment Not on file documented as of this encounter Visit Diagnoses Not on filedocumented in this encounter Care Teams Auto Parts Professional Relationship Specialty Start Date End Date Jacquie Garcia MD PCP - General Internal Medicine 09/04/15 11/25/21 Veena Bae MD [address] [place] [address] PCP - General Internal Medicine 11/26/21 documented as of this encounter
--- OUTSIDE RECORDS SUMMARY | 2025-05-07 12:59 | XMS_ITS | Clinical Summary ---
Author Organization [facility] Address [address] [place] [address] Care Team Providers Care Pipe Stem Repairer Name Role Phone Veena Bae MD Primary Care Provider [phone] Allergies Active Allergy Reactions Severity Noted Date Comments Seasonal Allergies 11/19/2022 Medications Medication Sig Dispensed Refills Start Date End Date Status ALBUTEROL SULFATE (ProAir HFA) 108 (90 Base) MCG/ACT Aero SolnIndications:Chron ic cough Inhale 2 Puffs into the lungs every 6 hours as needed for Cough, Wheezing or Shortness of Breath. 8.5 g 2 11/19/2022 Active Dupixent 300 MG/2ML Solution Pen-injector 0 08/24/2023 Act kell amlodipine (NORVASC) 5 MG tablet TAKE 1 TABLET BY MOUTH EVERY DAY 90 Tablet 1 11/18/2023 Active hydrOXYzine (ATARAX) 25 MG tablet TAKE 1 TABLET BY MOUTH DAILY AT BEDTIME NEEDED FOR INSOMNIA DUE TO ITCHING 0 10/28/2023 Active Clobetasol Propionate 0.05 % Shampoo APPLY TO SCALP 2X/WEEK, LEAVE ON FOR 5 MINS AND RINSE OFF 0 11/17/2023 Active betamethasone dipropionate 0.05 % lotionIndications:Ecz wale, unspecified type Apply 1 Drop topically 2 times daily for 360 days. 300 mL 1 11/30/2023 Active Magnesium Oxide -Mg Supplement 400 (240 Mg) MG Tab TAKE 1 TABLET BY MOUTH EVERY DAY 90 Tablet 0 03/21/2024 Active rosuvastatin (CRESTOR) 10 MG tabletIndications:Hyp ercholesterolemia TAKE 1 TABLET BY MOUTH EVERY DAY 90 Tablet 0 03/21/2024 Active hydrOXYzine (ATARAX) 10 MG tabletIndications:Terry h and other nonspecific skin eruption TAKE 1 TABLET BY MOUTH AT BEDTIME NEEDED FOR ITCHING 90 Tablet 0 03/21/2024 Active Active Problems Problem Noted Date Depression 02/12/2022 Encounter for screening mammogram for ma lignant neoplasm of breast 12/14/2021 Heavy alcohol use 08/11/2018 Overview: Seen at [facility] 07/26/18 complaining of crisis with alcohol overuse, alcohol [id number] seen by crisis and discharged Right shoulder pain 11/10/2017 Overview: MRI 01/25/2012: There are fibrocystic degenerative changes along the posterior humeral head. The rotator cuff appears grossly intact. There is AC join arthrosis, with cystic change in the distal clavicle and adjacent acromion. Hyperglycemia 11/19/2015 HTN (hypertension) 2015 Herpes simplex 2015 Hypercholesterolemia 2015 Overview: Exercise stress 10/23/11 Anxiety 2015 Immunizations Name Administration Dates Next Due Hepatitis B (Generic) 04/26/2012,11/24/2011,10/2011 Hepatitis B > 19yrs 04/26/2012,11/24/2011,2011 Influenza Vaccine-preservati ve Free-quadrivalent 4 Years 06/20/2019 Tdap 11/19/2015 Family History Medical History Relation Name Comments Diabetes Brother 1 Hypertension Brother 2 [place] Father dyslipidemia Arthritis Mother CA Colon Other cousin Leukemia Paternal Grandfather CA Breast Negative Hx Relation Name Status Comments Brother 1 Brother 2 Father Mother (Age 85) Other Paternal Grandfather Social History Tobacco Use Types Packs/Day Years Used Date Smoking Tobacco: Former Cigarettes 1 10 Q uit: 07/12/2020 Smokeless Tobacco: Never Tobacco Cessation:Counseling Given: Not Answered Comments:Vape rarely Alcohol Use Standard Drinks/Week Comments Not Currently 0 (1 standard drink = 0.6 oz pur e alcohol) Sober 8 months (11/2023) Sex Assigned at Date Recorded Not on file Job Start Date Occupation Industry Not on file Not on file Not on file Last Filed Vital Signs Vital Sign Reading Time Taken Comments Blood Pressure 89/67 11/30/2023 10:55 AM EDT Pulse 95 11/30/2023 10:55 AM EDT Temperature 36.6 C (97.9 F) 11/30/2023 10:55 AM EDT Respiratory Rate 16 02/04/2023 10:40 AM EDT Oxygen Saturation - - Inhaled Oxygen Concentration - - Weight 82.4 kg (181 lb 9.6 oz) 11/30/2023 10:55 AM EDT Height 160 cm (5' 3 ) 11/30/2023 10:55 AM EDT Body Mass Index 32.17 11/30/2023 10:55 AM EDT Plan of Treatment Health Maintenance Due Date Last Done Comments Covid-19 Vaccine (#1) 03/25/1961 SHINGLES VACCINE (1 of 2) 09/22/2009 CERVICAL CANCER SCREENING 11/07/20122009 (External Completion), 11/07/2009 COLON CANCER SCREENING 02/16/2022 2, 12/16/2011 (External Completion) BMI CHECK/ADVISE 07/12/2024 02/04/2023, 05/2023, 11/27/2021, Additional history exists DEPRESSION SCREENING/FOLLOWUP 07/12/2024, 09/01/2023, 09/01/2023, Additional history exists MAMMOGRAM 09/08/2024 09/08/2023, 12/11, 12/10/2015, Additional history exists BONE DENSITY SCREENING 09/22/2024 PNEUMOCOCCAL VACCINE (1 - PCV) 09/22/2024 INFLUENZA (#1) 2025 06/20/2019 DTAP/TDAP/TD (2 - Td or Tdap) 11/18/2025 11/19/2015 CHOLESTEROL SCREENING 11/29/2028 11/30/2023 , 09/01/2023, 11/19/2022, Additional history exists HEPATITIS C SCREENING Completed 09/19/2019 Care Teams Pipe Stem Repairer Relationship Specialty Start Date End Date Veena Bae MD [address] [place] [address] PCP - General Internal Medicine 11/26/21
--- OUTSIDE RECORDS SUMMARY | 2025-05-07 12:59 | XMS_ITS | Encounter Summary ---
Author Organization [facility] Address [address] [place] [address] Care Team Providers Care Client Representative Name Role Phone Jacquie Garcia MD Primary Care Provider Veena Coronado MD Primary Care Provider Reason for Visit * Reason Onset Date Comments REFERRAL 10/18/2017 Dermatology Encounter Details Date Type Department Care Team Description 10/18/2017 Telephone Dermatology - [address] [phone] Jacquie Garcia MD REFERRAL (Dermatology) Social History Tobacco Use Types Packs/Day Years [...] encounter Miscellaneous Notes * Telephone Encounter - Jacquie Garcia MD - 10/18/2017 9:35 AM EDT noted * Telephone Encounter - Lubna Preston - 10/18/2017 8:13 AM EDT Patient has not responded to multiple attempts to schedule Dermatology appointment. Referral will be closed. Reason for referral: Eczema on hands documented in this encounter Plan of Treatment Not on file documented as of this encounter Visit Diagnoses Not on filedocumented in this encounter Care Teams Client Representative Relationship Specialty Start Date End Date Jacquie Garcia MD PCP - General Internal Medicine 09/04/15 11/25/21 Veena Bae MD [facility] [place] [address] PCP - General Internal Medicine 11/26/21 documented as of this encounter
--- OUTSIDE RECORDS SUMMARY | 2025-05-07 12:59 | XMS_ITS | Encounter Summary ---
Author Organization [facility] Address [address] [place] [address] Care Team Providers Care Shellfish Shucker Name Role Phone Brijesh Aguirre MD Primary Care Provider Unavail Jacquie Shrestha MD Primary Care Provider Unavaila Veena Byrnes MD Primary Care Provider Encounter Details Date Type Department Care Team Description 02/02/2013 [facility] Medical Records [address] [place] [address] Chidi Pablo Social History Tobacco Use Types Packs/Day Years [...] on filedocumented in this encounter Care Teams Shellfish Shucker Relationship Specialty Start Date End Date Brijesh Aguirre MD PCP - General 02/02/1997 09/03/15 Jacquie Garcia MD PCP - General Internal Medicine 09/04/15 11/25/21 Veena Bae MD [address] [place] [address] PCP - General Internal Medicine 11/26/21 documented as of this encounter
--- OUTSIDE RECORDS SUMMARY | 2025-05-07 12:59 | XMS_ITS | Encounter Summary ---
Author Organization [facility] Address [address] [place] [address] Care Team Providers Care Safety Professional Name Role Phone Veena Bae MD Primary Care Provider [phone] Encounter Details Date Type Department Care Team Description 01/16/2023 Hospital Medical Records [address] [place], [place] [phone] [place] [address] Social History Tobacco Use Types Packs/Day Years [...] on filedocumented in this encounter Care Teams Safety Professional Relationship Specialty Start Date End Date Veena Bae MD [address] [facility] [place] [address] PCP - General Internal Medicine 11/26/21 documented as of this encounter
--- OUTSIDE RECORDS SUMMARY | 2025-05-07 12:59 | XMS_ITS | Encounter Summary ---
Author Organization [facility] Address [address] [place] [address] Care Team Providers Care Concession Supervisor Name Role Phone Veena Bae MD Primary Care Provider Reason for Visit * Reason Onset Date Comments Faxed Order [facility]TER Evaluation Summary Form 05/03/20 Encounter Details Date Type Department Care Team ([facility] st Contact Info) Description 05/03/2025 Telephone Adult Medicine - [address] [phone] Veena Bae MD [address] [place] [address] Social History Tobacco Use Types Packs/Day Years [...] as of this encounter Progress Notes * Veena Bae MD - 05/03/2025 4:11 PM EDT Has been signed. * Bhavani Valle - 05/03/2025 2:02 PM EDT PLEASE DOCUMENT/ CLOSE MESSAGE WHEN ORDER HAS BEEN FAXED Faxed order [facility] S[facility] Evaluation Summary received from [facility], requesting signature from provider. Please sign and fax back to [phone]. Order in Red folder Please also complete 3 questions by pink sticky note documented in this encounter Plan of Treatment Upcoming Encounters Date Type Department Care Team (Late st Contact Info) Description 07/06/2025 3:30 PM EST Office Visit Adult Medicine - [place] [address] [place] [phone] Abel Lincoln PA [address] [place] [address] documented as of this encounter Visit Diagnoses Not on filedocumented in this encounter Additional Health Concerns Assessment Noted Time PHQ-9 Depression Total Score: 7 01/05/20 25 2:55 PM EDT documented as of this encounter Care Teams Concession Supervisor Relationship Specialty Start Date End Date Veena Bae MD [address] [address] PCP - General Internal Medicine 11/26/21 documented as of this encounter
--- OUTSIDE RECORDS SUMMARY | 2025-05-07 12:59 | XMS_ITS | Encounter Summary ---
Author Organization [facility] Address [address] [place] [address] Care Team Providers Care Piercing Artist Name Role Phone Brijesh Aguirre MD Primary Care Provider Unavail able Jacquie Garcia MD Primary Care Provider Unavaila Veena Byrnes MD Primary Care Provider Encounter Details Date Type Department Care Team Description 01/31/2013 [facility] Medical Records [address] [place] [address] Lenka Do MD Social History Tobacco Use Types Packs/Day Years [...] on filedocumented in this encounter Care Teams Piercing Artist Relationship Specialty Start Date End Date Brijesh Aguirre MD PCP - General 02/02/1997 09/03/15 Jacquie Garcia MD PCP - General Internal Medicine 09/04/15 11/25/21 Veena Bae MD [address] [place] [address] PCP - General Internal Medicine 11/26/21 documented as of this encounter
--- OUTSIDE RECORDS SUMMARY | 2025-05-07 12:59 | XMS_ITS | Encounter Summary ---
Author Organization [facility] Address [address] [place] [address] Care Team Providers Care Chucking Machine Set Up Operator Tool Name Role Phone Veena Bae MD Primary Care Provider [phone] Encounter Details Date Type Department Care Team Description 02/08/2023 Orders Only Medical Records [address] [place] [address] Abstract, Provider Social History Tobacco Use Types Packs/Day Years Used Date Smoking Tobacco: Former Cigarettes 1 10 Q uit: 07/12/2020 Smokeless Tobacco: Never Comments:perhaps 2 cigarette s aday if that Alcohol Use Standard Drinks/Week Comments Yes 0 (1 standard drink = 0.6 oz pur e alcohol) rare wine Sex Assigned at Date Recorded Not on file Job Start Date Occupation Industry Not on file Not on file Not on file COVID-19 Exposure Response Date Recorded In the last 10 days, have yo u been in contact with someone who was confirmed or suspected to have Coronavirus/COVID-19? No / Unsure 02/04/2023 10:36 AM EDT documented as of this encounter Plan of Treatment Not on file documented as of this encounter Procedures Procedure Name Priority Date/Time Associated Diagnosis Comments OUTSIDE VASCULAR STUDY Routine 01/15/2023 OUTSIDE PLAIN FILM Routine 01/15/2023 documented in this encounter Results * OUTSIDE PLAIN FILM (01/15/2023) Provider Abstract RADIOLOGY * OUTSIDE VASCULAR STUDY (01/15/2023) Provider Abstract CARDIOLOGY documented in this encounter Visit Diagnoses Not on filedocumented in this encounter Care Teams Chucking Machine Set Up Operator Tool Relationship Specialty Start Date End Date Veena Bae MD [facility] [place] [address] PCP - General Internal Medicine 11/26/21 documented as of this encounter
--- OUTSIDE RECORDS SUMMARY | 2025-05-07 12:59 | XMS_ITS | Clinical Summary ---
Author Organization [facility] [address] [facility] [address] Address [address] [place] [address] Phone Care Team Providers Care Key Attendant Name Role Phone Veena Bae MD Primary [...] 5 Active hydrOXYzine HCL (ATARAX) 10 mg tabletIndicatio ns:Rash and other nonspecific skin eruption TAKE 1 TABLET BY MOUTH AT BEDTIME NEEDED FOR ITCHING. 90 tablet 1 5 Active GENERIC EXTERNAL MEDICATION 1 (one) time each day. Vitamin D unsure of dose Active acetaminophen (TYLENOL) 325 mg tablet Take 1 tablet (325 mg total) by mouth 2 (two) times a day if needed for mild pain. Active cyclobenzaprine (FLEXERIL) 5 mg tabletIndicatio ns:History of fracture of left ankle Take 1 tablet (5 mg total) by mouth 2 (two) times a day if needed for muscle spasms (can make tired). 30 tablet 5 Active aspirin 81 mg EC tablet Take 1 tablet (81 mg total) by mouth 1 (one) time each day. Active atorvastatin (LIPITOR) 80 mg tabletIndicatio ns:Medicare annual wellness visit, subsequent,Mixe d hyperlipidemia, Primary hypertension,Ec zema, unspecified type,Moderate episode of recurrent major depressive disorder ([facility]/HCC V24, CMS/HCC V28),Screening for lung cancer Take 1 tablet (80 mg total) by mouth 1 (one) time each day. 5 Active acyclovir (ZOVIRAX) 5 % ointmentIndicat ions:Cold sore Apply topically 5 (five) times a day for 4 days. Space applications every 3 hours. 5 g 5 025 Active Problems Problem Noted Date Diagnosed Date [...] alcohol use 08/11/2018 Overview (04/21/2024): Seen at [facility] 07/26/18 complaining of crisis with alcohol overuse, alcohol [id number] seen by crisis and discharged Right shoulder [...] Encounters Date Type Department Care Team Description 05/03/2025 Telephone Adult Medicine [facility] [address] [place] [address] Veena Bae MD 04/27/2025 Telephone Adult Medicine [facility] [address] [place] [address] Veena Bae MD 04/25/2025 Telephone Adult [facility] [address] [place] [address] Veena Bae MD 04/16/2025 Telephone Adult Medicine [facility] [address] [place] [address] Veena Bae MD 04/09/2025 Telephone Adult [facility] [address] [place] [address] Cady Golden MA 04/02/2025 Telephone Adult [facility] [address] [place] [address] Veena Bae MD 03/30/2025 Telephone Adult Medicine [facility] [address] [place] [address] Veena Bae MD 03/30/2025 Telephone Adult [facility] [address] [place] [address] Veena Bae MD 03/30/2025 Telephone Adult [facility] [address] [place] [address] Veena Bae MD 03/27/2025 Telephone Adult [facility] [address] [place] [address] Veena Bae MD 03/27/2025 Telephone Adult [facility] [address] [place] [address] Veena Bae MD 03/15/[address] [address] Veena Bae MD 03/09/2025 Telephone Adult [address] [address] Veena Bae MD 03/05/2025 Telephone Adult [address] [address] Veena Bae MD 03/01/2025 10:30 AM EDT Office Visit [address] [address] Veena Bae MD Hospital discharge follow-up (Primary Dx); S/P patent foramen ovale closure; History of embolic stroke; Primary hypertension; Mixed hyperlipidemia; Speech disturbance, unspecified type 02/23/2025 Telephone Adult [facility] [address] [place] [address] Veena Bae MD 02/13/2025 10:13 AM EDT - 02/13/2025 11:59 PM EDT [facility] Scan [address] [place] [address] Encounter for screening for lung cancer; History of tobacco use Discharge Disposition: Home or Self Care 02/13/2025 10:00 AM EDT Office Visit Lung Screening Program - [place] [address] [facility] [address] [place] [phone] Marii Bhatia NP Encounter for screening for malignant neoplasm of lung in former smoker who quit in past 15 years with 30 pack year history or greater (Primary Dx); Medicare annual wellness visit, subsequent; Mixed hyperlipidemia; Primary hypertension; Eczema, unspecified type; Moderate episode of recurrent major depressive disorder (CMS/HCC V24, CMS/HCC V28); Screening for lung cancer 02/08/2025 Telephone Adult Medicine - [place] [address] [place] [phone] Veena Bae MD 02/05/2025 Telephone Adult Medicine - [place] [address] [place] [address] Nadia Silva MA from Last 3 Months Immunizations Immunization Administration Dates Next Due Hepatitis B (Drhxzte-B-Ukthi , Recombivax HB-Adult) 19yo and older 04/26/2012,11/24/2011,10/14/2011 Influenza Quadravalent, MDCK , 0.5ml, preservative free (Flucelvax) 6mo and older 06/20/2019 Tdap Tetanus diptheria acell ular pertussis (Boostrix; Adacel) 7yo and older 11/19/2015 Surgical History Surgery Date Site/Laterality Comments COLONOSCOPY 12/16/11 PROCEDURE: HISTORICAL COLONOSCOPY; COMMENT: derrick, Aleisha per pt OTHER SURGICAL HISTORY 11/14/09 [...] DX:Anxiety Hx of stroke without residual deficits Family History Medical History Relation Name Comments [...] PM EST Office Visit Adult Medicine - [address] [phone] Abel Lincoln PA [address] [place] [address] Health Maintenance Due Date Last Done Comments Hepatitis A Vaccines (1 of 2 - Risk 2-dose series) 09/22/1978 Pneumococcal Vaccine: 50+ Years (1 of 1 - PCV) 09/22/2009 Zoster Vaccines (1 of 2) 09/22/2009 Cervical Cancer Screening: P ap Smear 11/07/2012 11/07/2009 Colorectal Cancer Screening: Colonoscopy 02/16/2022 02/17/2012 Osteoporosis Screening (Bone Density Screening) 06/20/2022 Social Influencers of Health Screening 06/20/2022 COVID-19 Vaccine (1 - 2023-2 5 season) 2025 Influenza Vaccine (#1) 2025 [...] Name Priority Date/Time Associated Diagnosis Comments EXTERNAL CLINICAL LAB 04/27/2025 EXTERNAL ECHO Routine 03/01/2025 3:[address] LUNG SCREENING Routine 02/13/2025 10: 24 AM EDT Encounter for screening for lung cancer History of tobacco use COMPREHENSIVE METABOLIC PANEL Routine 09/05/2024 3:41 PM EST Primary hypertension Hypercholesterolem ia LIPID PANEL WITH REFLEX TO DIRECT LDL Routine 09/05/2024 3:41 PM EST Primary hypertension Hypercholesterolem ia HM DEPRESSION SCREENING Routine 11/30/2023 SCREENING MAMMOGRAPHY BI 2-VIEW BREAST INC CAD Routine 09/08/2023 1:49 PM EST Encounter for screening mammogram for malignant neoplasm of breast HEPATITIS C SCREENING Routine 09/19/2019 EXTERNAL COLONOSCOPY REPORT Routine 02/17/2012 2:52 PM EDT HM PAP SMEAR Routine 11/07/2009 from Last 3 Months or Most Recently Relevant to Health Maintenance Results * External clinical lab (04/27/2025) Provider [facility] LAB BLOOD ORDERABLES Fin al Result * External Echo (03/01/2025 3:34 PM EDT) Anatomical Region Laterality Modality Ultrasound [facility] Provider MD DSOUZA ECHO PROCEDURES Final Result [...] Signed Date: 02/18/2025 06:13 ET Workstation ID: [id number] Transcribed By: Self Edit Transcribed Date: 02/18/2025 [...] Signed Date: 02/18/2025 06:13 ET Workstation ID: [id number] Transcribed By: Self Edit Transcribed Date: 02/18/2025 05:58 ET us Ollie Hoffman MD [facility] [place] Final Result * Lipid panel with reflex to direct LDL (09/05/2024 3:41 PM EST) Cholesterol 198 0 - 200 mg/dL LAB CHEMISTRY METHOD 09/05/2024 6:09 PM [facility] Triglycerides 91 0 - 150 mg/dL LAB CHEMISTRY METHOD 09/05/2024 6:09 PM [facility] HDL 89 >=40 mg/dL LAB CHEMISTRY METHOD 09/05/2024 6:09 PM [facility] LDL Calculated 91 0 - 100 mg/dL LAB CHEMISTRY METHOD 09/05/2024 6:09 PM [facility] VLDL Cholesterol Avery 18.2 mg/dL LAB CHEMISTRY METHOD 09/05/2024 6:09 PM [facility] Non HDL Chol. (LDL+VLDL) 109 <145 mg/dL LAB CHEMISTRY METHOD 09/05/2024 6:09 PM [facility] Chol/HDL Ratio 2.2 0.0 - 4.4 LAB CHEMISTRY METHOD 09/05/2024 6:09 PM [facility] Blood Venous blood specimen / Unknown Venipuncture / Unknown 09/05/2024 3:41 PM EST 09/05/2024 3:41 PM EST Abel MUELLER LAB BLOOD ORDERABLES Final Re sult [facility] [address] [place] [address], [place] [phone] * (ABNORMAL) Comprehensive metabolic panel (09/05/2024 3:41 PM EST) Sodium 139 133 - 145 mmol/L LAB CHEMISTRY METHOD 09/05/2024 6:07 PM [facility] Potassium 4.1 3.5 - 5.5 mmol/L LAB CHEMISTRY METHOD 09/05/2024 6:07 PM [facility] Chloride 108 96 - 110 mmol/L LAB CHEMISTRY METHOD 09/05/2024 6:07 PM [facility] CO2 26 21 - 32 mmol/L LAB CHEMISTRY METHOD 09/05/2024 6:07 PM [facility] Anion Gap 5 3 - 11 LAB CHEMISTRY METHOD 09/05/2024 6:07 PM [facility] Glucose 102(H) 70 - 100 mg/dL LAB CHEMISTRY METHOD 09/05/2024 6:07 PM [facility] BUN 25 5 - 25 mg/dL LAB CHEMISTRY METHOD 09/05/2024 6:07 PM [facility] Creatinine 0.77 0.50 - 1.10 mg/dL LAB CHEMISTRY METHOD 09/05/2024 6:07 PM [facility] eGFR 86 >=60 mL/min/1. 73m2 LAB CHEMISTRY METHOD 09/05/2024 6:07 PM [facility] Comment:Calculation based on the Chronic Kidney Disease Epidemiology Collaboration (CKD-EPI) equation refit without adjustment for race. BUN/Creatinine Ratio 32.5 LAB CHEMISTRY METHOD 09/05/2024 6:07 PM [facility] Calcium 10.1 8.5 - 10.5 mg/dL LAB CHEMISTRY METHOD 09/05/2024 6:07 PM [facility] AST (SGOT) 19 10 - 42 unit/L LAB CHEMISTRY METHOD 09/05/2024 6:07 PM [facility] ALT (SGPT) 31 10 - 60 unit/L LAB CHEMISTRY METHOD 09/05/2024 6:07 PM [facility] Alkaline Phosphatase 102 42 - 121 unit/L LAB CHEMISTRY METHOD 09/05/2024 6:07 PM [facility] Total Protein 7.6 6.0 - 8.0 g/dL LAB CHEMISTRY METHOD 09/05/2024 6:07 PM [facility] Albumin 4.2 3.2 - 5.0 g/dL LAB CHEMISTRY METHOD 09/05/2024 6:07 PM [facility] Total Bilirubin 0.3 0.0 - 1.4 mg/dL LAB CHEMISTRY METHOD 09/05/2024 6:07 PM [facility] Blood Venous blood specimen / Unknown Venipuncture / Unknown 09/05/2024 3:41 PM EST 09/05/2024 3:41 PM EST us Abel MUELLER LAB BLOOD ORDERABLES Final Re sult [facility] [address] [place], [place] [address] [phone] * Depression Screening (11/30/2023) Depression Screening Abstracted [...] (09/19/2019) Hepatitis C Screening Abstracted Historical Provider [facility] Final Result * External Colonoscopy Report (02/17/2012 2:52 PM EDT) Anatomical Region Laterality Modality Endoscopy Historical Provider GI~PROCEDURE ORDERABLES F inal Result * Pap Smear (11/07/2009) Pap smear No Interpretation , Abstracted Historical Provider HEALTH MAINTENANCE Final Result from Last 3 Months or Most Recently Relevant to Health Maintenance Insurance [place] [employer] MEDIC[place] ADVANTAGE Care Teams Key Attendant Relationship Specialty Start Date End Date Veena Bae MD [address] [place] [id number] PCP - General Internal Medicine 11/26/21
== END 2025-05-07 10:51 | disposition home or self-care (01) ==
LOC: HO.HSM 10:35
PROVIDERS: Visit Provider Psychiatry & Neurology Neurology
DX: I63.411 Cerebral infarction due to embolism of right middle cerebral artery (principal); F51.05 Insomnia due to other mental disorder; F99 Mental disorder, not otherwise specified; F41.9 Anxiety disorder, unspecified
CPT/HCPCS: 99214

== ENCOUNTER → 2025-05-07 10:34 | Outpatient (BNVA) | payer MEDICARE, MEDICAID, SELFPAY | PROVIDERS: Visit Provider Psychiatry & Neurology Neurology | DX: I63.411 Cerebral infarction due to embolism of right middle cerebral artery (principal); F51.05 Insomnia due to other mental disorder; F41.9 Anxiety disorder, unspecified | CPT/HCPCS: 99212 ==